=== PATIENT | male | born 1965 | race Caucasian/White ===

== ENCOUNTER 2017-04-10 09:45 | Day surgery (SDC) | payer OTHER ==
[2017-04-10 10:56] VITALS: BP 112/67; PULSE 50; RESP 16
--- NOTE | 2017-04-10 11:21 | OPPN ---
Date/Time of Note Date/Time of Note DATE: 04/10/17 TIME: 11:20 Operative Report Preoperative Diagnosis Screening Postoperative Diagnosis Diverticulosis of the colon Internal hemorrhoids No colon neoplasm was identified Operation/Procedure Performed Colonoscopy Surgeon see signature line fitter's assistant None Anesthesia: moderate sedation Estimated blood loss: none Transfusion Required none Specimen None Grafts/Implants none Complications none GALEN KIMBROUGH MD Apr 10, 2017 11:21
[2017-04-10] MEDS ORDERED: MIDAZOLAM 1 MG/ML 2 ML INJ ONE ×2 (11:25)
[2017-04-10] MEDS ORDERED: FENTAnyl 50 MCG/ML VIAL ONE (11:25)
[2017-04-10 11:44] VITALS: BP 123/69; PULSE 61; RESP 18
[2017-04-10 11:50] VITALS: BP 95/57; PULSE 67; RESP 15
--- NOTE | 2017-04-10 12:34 | GILP ---
DATE OF PROCEDURE: NAME OF PROCEDURE: Colonoscopy. SURGEON: Galen Camilo MD PREOPERATIVE DIAGNOSIS: Screening colonoscopy. POSTOPERATIVE DIAGNOSES 1. Colonoscopy all the way to the cecum. 2. Diverticulosis of the colon. 3. Internal hemorrhoids. 4. No colon neoplasm was identified. INDICATION FOR THE PROCEDURE: Mr. Braden Geronimo is a 51-year-old male patient who was scheduled fo r screening colonoscopy. The procedure and possible complications are well explained to the patient. The patient understood and consented to the procedure. DESCRIPTION OF PROCEDURE: Under the influence of fentanyl and Versed, the colonoscope was carefully introduced in the rectum and under direct vision it was advanced all the way to the cecum. FINDINGS: The patient had diverticulosis of the colon. He also had internal hemorrhoids. No colon neoplasm was identified. He tolerated the procedure very well and there was no complication from the procedure. At the end o f the procedure, he was awake with stable vital signs and he was discharged home to the care of his family. IMPRESSION: Please see postoperative diagnoses. PLAN: Next screening colonoscopy in 10 years advised high fiber diet. Dictated By: GALEN PRO/GUZMAN Conf#: [id number] DID#: [id number]
== END 2017-04-10 16:56 | disposition home or self-care (01) ==
LOC: GIL 09:45
PROVIDERS: ATTEND Internal Medicine Gastroenterology
DX: Z12.11 Encounter for screening for malignant neoplasm of colon (principal); K64.4 Residual hemorrhoidal skin tags; K57.90 Diverticulosis of intestine, part unspecified, without perforation or abscess without bleeding
CPT/HCPCS: 45378; J2250; J3010